=== PATIENT | male | born 1950 ===

== ENCOUNTER 2020-06-01 11:09 | Emergency (ER) | payer OTHER ==
[~2020-06-01] VITALS: Ht 180.3 cm; Wt 77.1 kg
[2020-06-01] MEDS ORDERED: CHILDREN'S ASPI81 MG (11:23)
[2020-06-01] MEDS ORDERED: ATORVASTATIN CA10 MG (11:24)
[2020-06-01] MEDS ORDERED: TERAZOSIN HCL5 MG (11:25)
[2020-06-01] MEDS ORDERED: CYCLOBENZAPRINE10 MG PO (15:31)
[2020-06-01] MEDS ORDERED: ORPHENADRINE C100 MG PO (15:31)
== END 2020-06-01 15:37 | disposition home or self-care (01) ==
LOC: ER 11:09
DX: S86.812A Strain of other muscle(s) and tendon(s) at lower leg level, left leg, initial encounter (principal); M79.605 Pain in left leg; I87.2 Venous insufficiency (chronic) (peripheral); W01.0XXA Fall on same level from slipping, tripping and stumbling without subsequent striking against object, initial encounter; Y93.01 Activity, walking, marching and hiking; Y92.832 Beach as the place of occurrence of the external cause; Y99.8 Other external cause status